=== PATIENT | female | born 1985 | race Caucasian/White ===

== ENCOUNTER 2024-06-05 08:12 | Emergency (ER) | payer OTHER, SELFPAY ==
--- OUTSIDE RECORDS SUMMARY | 2024-06-05 08:37 | XMS_ITS | Data Portability ---
Author Organization [facility] [place] Address [address] [place] [place] [address] Assessment No assessment recorded. Plan of Treatment Reminders Order Date Submit Date Provider Last Modified By Organization Details Last Modified Time Details Appointments None recorded. Lab test, urine 2022 023 [place], [address], [place], [address], 10:25:28 Referral None recorded. Procedures None recorded. Surgeries None recorded. Imaging None recorded. Medication Orders None recorded. Patient TargetsNo targets recorded. Patient InstructionsNo instructions recorded. Reason for Referral None Reported. Results Created Date Observation Date Name Description Value Unit Range Abnormal Flag Note LastModifiedBy Organization Detail LastModifiedTime 12/04/19 23 12/03/2022 pregn mateo test, urine HCG negati ve Not Available [place] [address], [place], [address], 12/03/2022 10:25:10 Result Notes None recorded. Procedures Surgical History Date Name Laterality Status Provider Name and Address Organization Details Recorded Time Date of Last Pap Smear completed [facility] 12/03/2022 10:01:03 Colposcopy completed [facility] 12/03/2022 10:01:17 tonsilectomy/ad enoids completed [facility] 12/03/2022 10:01:17 Imaging Results None recorded. Procedure Notes None recorded. Medical Equipment None Reported. Allergies Allergen ID Allergen Name Allergen Category Reaction Reaction Severity Criticality Documentation Date Start Date Code Code System Note Provider Name and Address Organization Details Recorded Time 37532 clindamyc in Not available fever rash severe moderate Not available 12/03/20222012 2582 RxNorm Sarah Pleitez [facility] 3 10:00:55 40688 amoxicill in medicatio n Not available Not available Not available 12/03/2022 723 [facility] 10:00:55 Medications Name Sig Start Date Stop Date Status Note LastModified by Organization Details LastModified Time atomoxetine 40 mg capsule active Not Available Not Available N ot Available 24 Hour Allergy Relief active Not Available Not Availab le Not Available Vitals Date Recorded Body height Body mass index (BMI) Body weight Systolic blood pressure Diastolic blood pressure Provider Name and Address Organization Details Last Updated DateTime 12/03/2022 162.56 cm 27.5 kg/m2 00532.78 g 134 mm[Hg] 87 mm[Hg] Sarah Pleitez [facility] 3 10:16:37 Social History Question Answer Notes LastModified by Organizat ion Details LastModified Time What Is Your Level Of Alcohol Consumption? Occasional Information not available 12/03/2022 Are You Blind Or Do You Have Difficulty Seeing? No Information not available 12/03/2022 What Is Your Level Of Caffeine Consumption? Moderate Information not available 12/03/2022 How Much Tobacco Do You Chew? None Information not available 12/03/2022 In The 14 Days Before Symptom Onset, Have You Had Close Contact With A Laboratory-confir med COVID-19 While That Case Was Ill? No Information not available 12/03/2022 In The 14 Days Before Symptom Onset, Have You Had Close Contact With A Person Who Is Under Investigation For COVID-19 While That Person Was Ill? No Information not available 12/03/2022 Have You Been To An Area Known To Be High Risk For COVID-19? No Information not available 12/03/2022 Are You Deaf Or Do You Have Serious Difficulty Hearing? No Information not available 12/03/2022 What Type Of Diet Are You Following? REGULAR Information not available 12/03/2022 What Is The Highest Grade Or Level Of School You Have Completed Or The Highest Degree You Have Received? 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 Yes Information not available 12/03/2022 Do You Use Protection During Sex? Usually Information not available 12/03/2022 Do You Use Your Seat Belt Or Car Seat Routinely? Yes Information not available 12/03/2022 Do You Have Smoke And Carbon Monoxide Detectors In Your Home? Yes Information not available 12/03/2022 How Much Tobacco Do You Smoke? No Information not available 12/03/2022 Do You Feel Stressed (tense, Restless, Nervous, Or Anxious, Or Unable To Sleep At Night)? [id number] Information not available 12/03/2022 Do You Use Any Illicit Or Recreational Drugs? No Information not available 12/03/2022 Do You Use Sunscreen Routinely? Yes Information not available 12/03/2022 Have You Used IV Drugs? No Information not available 12/03/2022 Sex: Unknown Functional Status Question Answer Note LastModified by Organizat ion Details LastModified Time Are you able to walk? YESWOREST Information not available 12/03/2022 What is your exercise level? Occasional Information not available 12/03/2022 Mental Status None recorded. Family History Nothing Reported. Medical History Condition Response Allergies (Food, seasonal, environmental ) Y History of abnormal pap Y Headaches Y Pre-Eclampsia Y Asthma Y Gynecological History Statement/Question Response Date of LMP 10/02/2022 N STIs/STDs N HPV Vaccine N Current Control Method None Sexually Active? Y None Date of Last Pap Smear 04/28/2020 Sexual Problems? N Desired Control Method None LMP Definite N 06/27/2015 Obstetrics History GPAL:G 3 P 0 2 1 2 Type Value Induced 1 Premature 2 Living 2 Total 3 Past Encounters Encounter ID Performer Location Encounter Start Date Encounter Closed Date Diagnosis/Indication Diagnosis SNOMED-CT Code Diagnosis ICD10 Code Diagnosis Note [id number] LISHA Yan [place] [address] [address] 12/03/2022 09:40:57 12/03/2022 10:56:12 Screening procedure 54540902 Z13.9 Past pregn mateo history of induced termination of 672418326 Z98.890 UPT (-) todayno current bleeding, pain, or abnormal dischargeB C options reviewed - declinedpa rtner is planning vasectomy - would like to use condoms for nowquestio ns answereden couraged to RTC for WWE Time spent in visit is a total of 20 mins with at least 50% of visit consisting of counseling and review of plan of care. Health Concerns Section Related Observation LastModified by Organization Detai ls LastModified Time None Recorded Concern Status LastModified by Organization Details LastModified Time None Recorded Advance Directives Directive None Recorded Payers Encounter Date Sequence Insurance Name Policy Number Policy Sanford Covered Member ID Sanford Member ID Guarantor Name 12/03/2022 1 [facility] [place] - DOS PRIOR TO 2024 - [employer] () [facility] [id number] Becca Daniels Notes Date Note Type Note Provider Name and Address Organization Details Recorded Time 12/03/2022 text/html 37yo [id number] for f/u on EABLMP 10/02/22. Took medication for EAB around 10/29/22, obtained through [facility]. Had heavy bleeding for about 3 days. No current bleeding, pain, or discharge.Her partner is planning a vasectomy - using condoms nowhx of abnormal pap around 2015 - no procedures requiredlast pap 2020 - normalneg n/v/fneg urinary symptoms LISHA Yan [address], [place], [address], [place] [facility] 12/03/2022 10:53:54 OBGyn Episode Ob Episode Information Episode Created Date Number of Fetuses Patient Bloodtype Patient rh Status Prepregnancy Weight lbs Domestic Partner Domestic Partner Phone Father Name Assistant Front Office Manager Status 12/04/19 1 CLOSED Fetus Data First Name Last Name Admitted to NICU Weight (g) Sex Living Outcome Pediatric Complications Fetus ID Race Codes Race Delivery Type [id number] Puneet Calculation Initial Puneet Date Initial Exam Date Initial Exam Provider Initial Ultrasound Date Last Menstrual Period Date Ultra Sound Weeks Gestation 0 Eighteen To Twenty Week Puneet Update Ultra Sound Date Fundal Height At Umbil Quickening Date Ultra Sound Latest Weeks Gestation Final Puneet Confirmed By Final Puneet Confirmed Date Final Puneet Date Ultra Sound Latest Days Gestation 0 0 Menstrual History Last Menstrual Date Menses Monthly On Bcp Conception Prior Menses Frequency Hcg Plus Date Menarche Onset Age Delivery Information Delivery Date Delivery Type Labor Anesthesia Weeks Gestation Incision Type Labor Labor Length Hrs Delivered By Post Complications Tubal Sterilization Discharge Date Comments 1 36 Discharge Information Feeding Method Contraceptive Method Maternal HG B and HCT Levels Ob Episode Information Episode Created Date Number of Fetuses Patient Bloodtype Patient rh Status Prepregnancy Weight lbs Domestic Partner Domestic Partner Phone Father Name Assistant Front Office Manager Status 12/04/19 1 CLOSED Fetus Data First Name Last Name Admitted to NICU Weight (g) Sex Living Outcome Pediatric Complications Fetus ID Race Codes Race Delivery Type Puneet Calculation Initial Puneet Date Initial Exam Date Initial Exam Provider Initial Ultrasound Date Last Menstrual Period Date Ultra Sound Weeks Gestation 0 Eighteen To Twenty Week Puneet Update Ultra Sound Date Fundal Height At Umbil Quickening Date Ultra Sound Latest Weeks Gestation Final Puneet Confirmed By Final Puneet Confirmed Date Final Puneet Date Ultra Sound Latest Days Gestation 0 0 Menstrual History Last Menstrual Date Menses Monthly On Bcp Conception Prior Menses Frequency Hcg Plus Date Menarche Onset Age Delivery Information Delivery Date Delivery Type Labor Anesthesia Weeks Gestation Incision Type Labor Labor Length Hrs Delivered By Post Complications Tubal Sterilization Discharge Date Comments 3 Discharge Information Feeding Method Contraceptive Method Maternal HG B and HCT Levels Ob Episode Information Episode Created Date Number of Fetuses Patient Bloodtype Patient rh Status Prepregnancy Weight lbs Domestic Partner Domestic Partner Phone Father Name Assistant Front Office Manager Status 12/04/19 1 CLOSED Fetus Data First Name Last Name Admitted to NICU Weight (g) Sex Living Outcome Pediatric Complications Fetus ID Race Codes Race Delivery Type [id number] Puneet Calculation Initial Puneet Date Initial Exam Date Initial Exam Provider Initial Ultrasound Date Last Menstrual Period Date Ultra Sound Weeks Gestation 0 Eighteen To Twenty Week Puneet Update Ultra Sound Date Fundal Height At Umbil Quickening Date Ultra Sound Latest Weeks Gestation Final Puneet Confirmed By Final Puneet Confirmed Date Final Puneet Date Ultra Sound Latest Days Gestation 0 0 Menstrual History Last Menstrual Date Menses Monthly On Bcp Conception Prior Menses Frequency Hcg Plus Date Menarche Onset Age Delivery Information Delivery Date Delivery Type Labor Anesthesia Weeks Gestation Incision Type Labor Labor Length Hrs Delivered By Post Complications Tubal Sterilization Discharge Date Comments 7 34 Discharge Information Feeding Method Contraceptive Method Maternal HG B and HCT Levels
--- OUTSIDE RECORDS SUMMARY | 2024-06-05 08:37 | XMS_ITS | Encounter Summary ---
Author Organization [facility] Address [facility] [place] [address] Care Team Providers Care [place] Name Role Phone Nathalie Ely APRN Primary Care Provider [phone] Encounter Details Date Type Department Care Team ([facility] Contact Info) Description 07/21/2023 [employer] Message Enc [facility] Family & Internal Medicine [facility] [id number] [place] [phone] Nathalie Ely APRN [address] [address] Results from pap Social History Tobacco Use Types Packs/Day Years Used Date Smoking Tobacco: Never Passive Smoke Exposure: Never Smokeless Tobacco: Never Alcohol Use Standard Drinks/Week Comments Never 0 (1 standard drink = 0.6 oz pur e alcohol) Overall Financial Resource Strain (CARDIA) Answe r Date Recorded How hard is it for you to pa y for the very basics like food, housing, medical care, and heating? Not hard at all 11/20/2022 PHQ-2 Answer Date Recorded Patient Health Questionnaire-2 Score 0 07/15/2023 Hunger Vital Sign Answer Date Recorded Within the past 12 months, y ou worried that your food would run out before you got the money to buy more. Never true 11/21/19 23 Within the past 12 months, t he food you bought just didn't last and you didn't have money to get more. Never true 11/20/2022 PRAPARE - Transportation Answer Date Re corded In the past 12 months, has l ack of transportation kept you from medical appointments or from getting medications? No 12/2022 In the past 12 months, has l ack of transportation kept you from meetings, work, or from getting things needed for daily living? No 11/20/2022 Comments No Sex and Gender Information Value Date Recorded Sex Assigned at Female 04/30/2024 10:20 AM DIABETES CLINICAL MANAGER Legal Sex Female 10:28 AM CDT Gender Identity Not on file Sexual Orientation Not on file documented as of this encounter Progress Notes * Nusrat Diana MA - 07/22/2023 7:38 AM CDT I left a message with the lab to call me back regarding pap results. * Nathalie Ely APRN - 07/22/2023 7:21 AM CDT Can you call lab and inquire about pap results? - she will need referral to general surgery for hernia repair. * Nusrat Dinaa MA - 07/22/2023 7:03 AM CDT Please advise. I do not see that the pap results have came back yet. documented in this encounter Plan of Treatment Upcoming Encounters Date Type Department Care Team (Late st Contact Info) Description 06/14/2024 3:00 PM DIABETES CLINICAL MANAGER Office Visit [facility] Family & Internal Medicine [address] [address] Nathalie Ely APRN [address] [place] [address] 06/24/2024 9:00 AM CDT Appointment [facility] Director [place] [address] Nathalie Ely APRN [phone] [facility] [address] [place] [address] [phone] Yoko Mojica MD [facility] [address] [place] [address] 07/22/2024 2:20 PM CDT Office Visit [facility] Family & Internal Medicine - [place] [id number] [place] [phone] Nathalie Ely APRN [address] [phone] documented as of this encounter Visit Diagnoses Not on filedocumented in this encounter Care Teams [place] Relationship Specialty Start Date End Date Nathalie Ely APRN [id number] [facility] [address] [place] [address] [phone] PCP - General NURSE PRACTITIONER 06/26/22 documented as of this encounter
--- OUTSIDE RECORDS SUMMARY | 2024-06-05 08:38 | XMS_ITS | Clinical Summary ---
Author Organization [facility] Address [facility] [place] [address] Care Team Providers Care Bridge Engineer Name Role Phone Carly Ely APRN Primary Care Provider [phone]- [phone] Allergies Active Allergy Reactions Criticality Noted Date Comments Amoxicillin Rash Low 01/27/2022 Clindamycin Rash Low 01/27/2022 Doxycycline GI Upset 03/07/2023 Medications loratadine (CLARITIN) 10 MG tablet Take 1 tablet (10 mg total) by mouth daily. Active loratadine-pseudoe phedrine ER (CLARITIN-D 24 HOUR) 10-240 MG 24 hr tablet Take 1 tablet by mouth as needed for Allergies. Active atomoxetine (STRATTERA) 80 MG capsuleIndications :Attention deficit hyperactivity disorder (ADHD), predominantly inattentive type Take 1 capsule (80 mg total) by mouth daily. 90 capsule 4 Active busPIRone (BUSPAR) 5 MG tabletIndications: Anxiety Take 1 tablet (5 mg total) by mouth 2 (two) times daily. 90 tablet 3 4 Active propranolol (INDERAL) 10 MG tabletIndications: Light-headed feeling,Primary hypertension,Tachy cardia Take 1 tablet (10 mg total) by mouth 3 (three) times daily. 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 Otosclerosis 06/30/2022 Family history of breast cancer 06/30/2022 Hearing loss 06/30/2022 Encounters Date Type Department Care Team Description 05/20/2024 Scan HEALTH INFO SRVCS Scanned, [facility] 05/10/2024 12:30 PM DEVELOPER PROVER MECHANICAL Telephone [facility], [place] [address] Carly Ely APRN Holter Monitor 05/04/2024 Telephone [facility], [address] [address] Nora Menjivar Schedule Test 04/30/2024 8:20 AM DEVELOPER PROVER MECHANICAL Office Visit [facility] Family & Internal Medicine [address] [address] Carly Ely APRN Follow Up (C/o lightheaded, low heart rate, feeling of passing out, trouble regulating temp, and dizzy) 04/30/2024 Telephone [facility], [address] [address] Nora Menjivar Schedule Test 04/30/2024 Travel from Last 3 Months Family History Medical History Relation Comments Breast Cancer Maternal Aunt Breast Cancer Maternal Grandmother 1ST- LATE 4 0'S, 2ND 70'S Breast Cancer Mother pots Sister Relation Status Comments Maternal Aunt Alive Maternal Grandmother Mother Sister Social History Tobacco Use Types Packs/Day Years Used Date Smoking Tobacco: Never Passive Smoke Exposure: Never Smokeless Tobacco: Never Tobacco Cessation:Counseling Given: No Alcohol Use Standard Drinks/Week Comments Never 0 (1 standard drink = 0.6 oz pur e alcohol) Overall Financial Resource Strain (CARDIA) Answe r Date Recorded How hard is it for you to pa y for the very basics like food, housing, medical care, and heating? Not hard at all 11/20/2022 PHQ-2 Answer Date Recorded Patient Health Questionnaire-2 Score 0 04/30/2024 Hunger Vital Sign Answer Date Recorded Within [...] Sex Assigned at Female 04/30/2024 10:20 AM DEVELOPER PROVER MECHANICAL Legal Sex Female 10:28 AM CDT Gender Identity Not on file Sexual Orientation Not on file Last Filed Vital Signs Vital Sign Reading Time Taken Comments Blood Pressure 148/82 04/30/2024 8:20 AM DEVELOPER PROVER MECHANICAL Pulse 111 04/30/2024 8:20 AM DEVELOPER PROVER MECHANICAL Temperature 36.6 C (97.9 F) 04/30/2024 8:20 AM DEVELOPER PROVER MECHANICAL Respiratory Rate 18 04/30/2024 8:20 AM DEVELOPER PROVER MECHANICAL Oxygen Saturation 99% 04/30/2024 8:20 AM DEVELOPER PROVER MECHANICAL Inhaled Oxygen Concentration - - Weight 73.9 kg (163 lb) 04/30/2024 8:20 AM DEVELOPER PROVER MECHANICAL Height 162.6 cm (5' 4 ) 04/30/2024 8:20 AM DEVELOPER PROVER MECHANICAL Body Mass Index 27.98 04/30/2024 8:20 AM DEVELOPER PROVER MECHANICAL Plan of Treatment Upcoming Encounters Date Type Department Care Team (Late st Contact Info) Description 06/14/2024 3:00 PM DEVELOPER PROVER MECHANICAL Office Visit [facility] Family & Internal Medicine - [place] [address] [place] [address] Carly Ely, JARETT [address] [facility] [address] [place] [address] 06/24/2024 9:00 AM CDT Appointment [place] [address] Carly Ely, FORMING MACHINE UPKEEP MECHANIC HELPER [address] [facility] [address] [place] [phone] Yoko Mojica MD [facility]. [place] [address] [place] [phone] 07/22/2024 2:20 PM CDT Office Visit [facility] Family & Internal Medicine - [place] [address] [place] [address] Carly Ely, JARETT [address] [facility] [address] [place] [address] [phone] Health Maintenance Due Date Last Done Comments Annual Physical 01/21/2025 01/22/2024, 07/15/2023, 06/27/2022 Cervical Cancer Screening Pa p with HPV Testing (Age 30 to 64) Every 5 Years 01/21/2025 01/22/2024 Cervical Cancer Screening with HPV 01/21/2025 COVID-19 Vaccine (1 - 2023-2 5 season) 2025 Postponed from 12/13 (Patient Refused) DTaP, Tdap and Td Vaccines ( 1 - Tdap) 01/27/2025 Postponed from 07/05 (Patient Refused) Hepatitis B Vaccines (1 of 3 - 19+ 3-dose series) 01/27/2025 Postponed from 06/13 (Patient/Guardian Refusal) Influenza Adult (#1) 2025 Postpon ed from 01/13/2024 (Patient Refused) Cervical Cancer Screening Pa p Smear (Age 30 to 64) Every 3 Years 01/21/2027 01/22/2024, 07/15/2023 Hepatitis C 01/27/2054 Postponed from 07/06/2003 (Patient Refused) PHQ-2 (Physician [place]) Completed 04/30/2024 HPV Vaccines Aged Out No longer eligi ble based on patient's age to complete this topic Meningococcal B Vaccine Aged Out No l onger eligible based on patient's age to complete this topic Meningococcal Vaccine Aged Out No nile sandra eligible based on patient's age to complete this topic Pneumococcal Vaccine: Pediatrics (0 to 5 Years) and At-Risk Patients (6 to 64 Years) Aged Out No longer eligible b ased on patient's age to complete this topic RSV Immunizations Under 20 Months Aged Out No longer eligible b ased on patient's age to complete this topic Medical Devices Implanted Type Area Bowl Sander Device Identifier Shelf Expiration Date Model / Serial / Lot Mesh Ventralex Small With Strap [id number] - [id number] Implanted:Qty : 1 on 10/02/2023 by Favian Peter MD at [facility] Mesh N/A: Umbilical [employer] [id number] 05/11/2025 [id number] / / [id number] Procedures Procedure Name Priority Date/Time Associated Diagnosis Comments CYTOPATH CERV/VAG THIN LAYER Routine 01/22/2024 2:24 PM CDT Well woman exam with routine gynecological exam Vaginal Pap smear Cervical cancer screening HUMAN PAPILLOMAVIRUS, HIGH-RISK TYPES Routine 01/22/2024 8:00 AM CDT from Last 3 Months or Most Recently Relevant to Health Maintenance Results * CYTOPATH CERV/VAG THIN LAYER [99864] (01/22/2024 2:24 PM CDT) THIN PREP PAP [address] [address] Department of Pathology Pathology Report CERVICAL/VAGINAL PAP SMEAR REPORT Name: IVONNE DANIELS Age: 3 1985 (Age: 38) Location: [facility] Sex: F Collected Date: 01/22/2024 [facility] #: [id number] Date Received: 01/23/2024 Date Reported: 01/27/2024 Provider: CARLY ELY FORMING MACHINE UPKEEP MECHANIC HELPER INTERPRETATION CERVICAL/ENDOCERVI SITA: SATISFACTORY FOR EVALUATION. ENDOCERVICAL/TRANS FORMATION ZONE COMPONENT ABSENT. NEGATIVE FOR INTRAEPITHELIAL LESION OR MALIGNANCY. NEGATIVE FOR HIGH RISK HPV. The FDA approved Aptima HPV assay is an in vitro nucleic acid amplification test for the qualitative detection of E6/E7 viral messenger RNA (mRNA) from 14 high-risk types of human papillomavirus (HPV) in cervical specimens. The high-risk HPV types detected by the assay include: 16,18,31,33,35,39, 45,51,52,56,58,59, 66, and 68. Electronically Signed Out By CASSY Molina (ASCP) CLINICAL HISTORY (Z01.419) WELL WOMEN EXMANATION WITH ROUTINE GYNECOLOGICAL EXAMINATION, (Z12.72) VAGINAL PAP SMEAR AND (Z12.4) CERVICAL CANCER SCREENING ROUTINE PAP TEST SCREENING NO HISTORY ThinPrep Pap Test with HR HPV testing in patient > 30 years requested. Date of Last Menstrual Period: 01/15/2024 Menstrual Status: Regular SPECIMEN SUBMITTED CERVICAL/ENDOCERVI SITA Specimen Received:1 Thin Prep Vial, Image Assisted Pap (SMD) Please note: The Pap smear is not a diagnostic test. It is a screening test. Negative results on combined screening (Pap test and HPV-DNA) have a high negative predictive value (99.1-100 percent) for cervical cancer. The pap test is not effective in detecting cervical adenocarcinoma. [facility] 01/22/2024 2:24 PM CDT 01/23/2024 2:24 PM CDT Comment:CERVICAL/ENDOCERVICA L Carly Ely APRN PATHOLOGY/CYTOLOGY ORDERAB LES Final Result [facility] [address] [place] [address], * HUMAN PAPILLOMAVIRUS, HIGH-RISK TYPES (01/22/2024 8:00 AM CDT) SPECIMEN SOURCE ENDOCERVIX 01/26/2024 9:00 AM CDT [facility] HPV DNA HIGH RISK NEGATIVE NEGATIVE 01/27/2024 1:33 AM CDT [facility] Comment:SEE CYTOLOGY REPORT 01/22/2024 8:00 AM CDT Carly Ely APRN PATHOLOGY/CYTOLOGY ORDERAB LES Final Result [facility] [address] [email or web address] [address], from Last 3 Months or Most Recently Relevant to Health Maintenance Insurance Care Teams Bridge Engineer Relationship Specialty Start Date End Date Carly Ely APRN [address] [facility] [address] [place] [address] PCP - General NURSE PRACTITIONER 06/26/22
--- OUTSIDE RECORDS SUMMARY | 2024-06-05 08:38 | XMS_ITS | Encounter Summary ---
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 Legal Sex Female 10:28 AM CDT Gender Identity Not on file Sexual Orientation Not on file documented as of this encounter Plan of Treatment Upcoming Encounters Date Type Department Care Team (Late st Contact Info) Description 06/14/2024 3:00 PM WATER SERVICE SUPERVISOR Office Visit [facility] Family & Internal Medicine [address] [address] Nathalie Ely, METAL HARDENER [address] [facility] [address] [place] [phone] 06/24/2024 9:00 AM CDT Appointment [facility] Manager [place], [place] [phone] Nathalie Ely, METAL HARDENER [address] [facility] [address] [place] [phone] Yoko Mojica MD Three [facility]. [address] [address] 07/22/2024 2:20 PM CDT Office Visit [facility] Family & Internal Medicine [address] [address] Nathalie Ely, METAL HARDENER [address] [facility] [address] [address] [place] [phone] documented as of this encounter Results * MRSA SCREENING (09/26/2023 10:15 AM CDT) SPEC DESCRIPTION NASAL 09/26/2023 10:08 AM CDT [facility] SPECIAL REQUESTS NO SPECIAL REQUEST 09/26/2023 10:08 AM CDT [facility] CULTURE RESULT NO METHICILLIN RESISTANT STAPHYLOCOCCUS AUREUS ISOLATED 09/27/2023 9:01 PM CDT [facility] SPECIMEN FROM INTERNAL NOSE / Unknown 09/26/2023 10:15 AM CDT 09/26/2023 10:16 AM CDT us Favian Peter MD MICROBIOLOGY - GENERAL ORDERABLE S Final Result [facility] [address] [place] [address], documented in this encounter Visit Diagnoses Diagnosis Preop testing- Primary Preoperative examination, unspecified documented in this encounter Care Teams Clinical Auditor Relationship Specialty Start Date End Date Nathalie Ely APRN [address] [address] [place] [address] PCP - General NURSE PRACTITIONER 06/26/22 documented as of this encounter
--- OUTSIDE RECORDS SUMMARY | 2024-06-05 08:38 | XMS_ITS | Encounter Summary ---
Author Organization [facility] Address [facility] [place] [address] Care Team Providers Care Gauge Inspector Name Role Phone Nathalie Ely APRN Primary Care Provider [phone]- [phone] Reason for Referral * Surgical (Routine) - Closed Specialty Diagnoses / Procedures Referred By Tremaine hammer Referred To Contact Diagnoses Umbilical hernia without obstruction or gangrene Procedures Case request operating room: HERNIORRHAPHY UMBILICAL Favian Peter MD [address] [place] [address] [place] [phone] Phone: tel: fax: [facility] Family & Internal Medicine [address] [address] Phone: tel: Referral ID Status Reason Start Date Expiration Date Visits Re quested Visits Authorized [id number] Closed 08/25/2023 08/24/2024 5 5 Encounter Details Date Type Department Care Team (Late st Contact Info) Description 08/25/2023 Prep for Procedure [facility] General Surgery [address], [address] [place] [address] Favian Peter MD [address] [place] [address] [place] [phone] Social History Tobacco Use Types Packs/Day Years [...] Sex Assigned at Female 04/30/2024 10:20 AM 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 [employer] [place] [address] Nathalie Ely APRN [address] [facility] [address] [place] [address] Yoko Mojica MD [address] [place] [address] [address] 07/22/2024 2:20 PM CDT Office Visit [facility] Medical Group Family & Internal Medicine - [place] [address] [place] [address] Nathalie Ely APRN [address] [address] Scheduled Orders Name Type Priority Associated Diagnoses Orde r Schedule Case request operating room: HERNIORRHAPHY UMBILICAL Case Request Routine Umbilical hernia without obstruction or gangrene Once for 1 Occurrences starting 10/02/2023 until 10/02/2023 documented as of this encounter Visit Diagnoses Diagnosis Umbilical hernia without obstruction or gangrene- Primary Umbilical hernia without mention of obstruction or gangrene documented in this encounter Care Teams Gauge Inspector Relationship Specialty Start Date End Date Nathalie Ely APRN [address] [address] PCP - General NURSE PRACTITIONER 06/26/22 documented as of this encounter
[2024-06-05 08:45] VITALS: BP 138/97; PULSE 120; RESP 18; TEMP 36.6; O2SAT 100
--- NOTE | 2024-06-05 08:59 | ED_ITS ---
HPI - URI/Sore Throat General Chief Complaint: Upper Respiratory Infection Stated Complaint: cold symptoms Source: patient Mode of arrival: ambulatory Limitations: no limitations History of Present Illness HPI Narrative: 30-year-old female presented for complaint of nasal congestion, cough and chest congestion for about 2 weeks. Says cough is getting worse and causing difficulty sleeping. She has taken multiple pslw-vog-dotfhuo medicines for symptoms and says they are no longer helping. She denies palpitations, chest pain, shortness of breath, wheezing nausea, vomiting, diarrhea, fevers or lethargy. She is currently wearing a heart monitor to evaluate for POTS. Related Data Home Medications ?Medication ?Instructions ?Recorded ?Confirmed ?Last Taken ?Type atomoxetine 80 mg capsule mg PO 06/05/24 Unknown History Allergies Allergy/AdvReac Type Severity Reaction Status Date / Time amoxicillin AdvReac Unknown Fever Verified 06/05/24 08:57 clindamycin AdvReac Unknown Fever Verified 06/05/24 08:57 Review of Systems Review of Systems: ROS per HPI All systems reviewed & are unremarkable except as noted in HPI and below PMFSH Comments At time of signature, I have reviewed and agree with nursing past medical, surgical, social and family history unless otherwise noted. Please see nursing chart for further information. There is no relevant family history pertinent to the presenting complaint Exam Narrative: GENERAL: Well-appearing, in no acute distress. EYES: EOMI. No redness or drainage. Conjunctivae normal. ENT: Mucous membranes pink and moist. No rhinorrhea. TMs normal bilaterally. Throat normal. Uvula midline. NECK: Normal AROM. Supple. CHEST: No respiratory distress. Wheezing to all ovalles. HEART: Regular rate and rhythm. No murmur appreciated. ABDOMEN: Soft, nontender, nondistended, normal active bowel sounds. EXTREMITIES: Normal range of motion. No edema. SKIN: Warm, dry, no rash. Capillary refill normal. Normal skin turgor. NEURO: Alert and oriented x3. Gait steady. PSYCH: Normal affect. Course Course Emergency Course: Patient is aware of diagnosis, understands and agrees to treatment plan. Anticipatory guidance given. Patient agrees to follow-up as directed and is aware of reasons to seek care at the emergency department. Portions of this record may have been created with voice recognition software Level of Care: Express Care Visit Vital Signs Vital signs: Vital Signs Temperature 97.9 F 06/05/24 08:45 Pulse Rate 120 H 06/05/24 08:45 Respiratory Rate 18 06/05/24 08:45 Blood Pressure 138/97 H 06/05/24 08:45 Pulse Oximetry 100 06/05/24 08:45 Oxygen Delivery Room Air 06/05/24 08:45 Temperature 97.9 F 06/05/24 08:45 Pulse Rate 120 H 06/05/24 08:45 Respiratory Rate 18 06/05/24 08:45 Blood Pressure 138/97 H 06/05/24 08:45 Pulse Oximetry 100 06/05/24 08:45 Oxygen Delivery Room Air 06/05/24 08:45 MDM - URI/Sore Throat MDM Narrative Medical decision making narrative: Discussed physical exam findings. Advised supportive measures and signs/symptoms to go to the ER. Pt is appropriate for outpt treatment and f/u. Differential Diagnosis Differential diagnosis: Likely upper respiratory infection, sinusitis, viral infection, bronchitis, influenza and pharyngitis Discharge Plan Discharge Clinical Impression: Bronchitis Patient Disposition: Home, Self-Care Condition: Stable Instructions: Antibiotic Form, Acute Bronchitis (ED) Additional Instructions: Acute bronchitis can be contagious because it is usually caused by infection with a virus or bacteria. It is usually for a few days but you can be contagious for up to one week. Avoid crowds until you do not have a fever and symptoms are improved Take medication as directed Flonase spray and Zyrtec (or Claritin/Amara) over the counter Cough syrup may cause drowsiness; avoid driving or take it at night time. Tylenol 1000mg every 8 hours as needed for pain Symptomatic treatment includes: rest, fluids, and increase humidity of the air at home. Follow up with your primary care provider as needed in 1 week Go to the ER for worsening symptoms or concerns Patient Language: South African Prescriptions: New codeine-guaifenesin [Guaifenesin AC] 10-100 mg/5 mL liquid 10 ml PO Q8H PRN (Reason: cough) Qty: 120 0RF azithromycin [Zithromax Z-Isauro] 250 mg tablet See Rx Instructions .ROUTE .COMPLEX Qty: 6 0RF Rx Instructions: For 250 mg dose pack: take 500 mg today (day 1), then 250 mg for 4 days (days 2-5) methylprednisolone [Medrol (Isauro)] 4 mg tablets,dose pack See Rx Instructions .ROUTE .COMPLEX Qty: 21 0RF Rx Instructions: orally per package directions No Action atomoxetine 80 mg capsule PO Follow-up/Referrals: Jhoana,Nathalie Barnes APRN [Primary Care Provider] - Time of Disposition: 09:08
== END 2024-06-05 09:10 | disposition home or self-care (01) ==
PROVIDERS: Emergency Provider Nurse Practitioner Family; PCP Registered Nurse
DX: J40 Bronchitis, not specified as acute or chronic (principal); I10 Essential (primary) hypertension
CPT/HCPCS: 99203; G0463